=== PATIENT | male | born 1950 | race Hispanic/Latino ===

== ENCOUNTER 2019-04-28 05:38 | Day surgery (SDC) | payer MEDICARE ==
[~2019-04-28] VITALS: Ht 165.1 cm; Wt 75.3 kg
[2019-04-28] MEDS ORDERED: SODIUM CHLORIDE 0.9% 1000ML 1,000 ML IV ONE ×2 (05:47→06:29)
[2019-04-28 06:40] VITALS: BP 123/63
[2019-04-28] MEDS ORDERED: CLOP75TA14 PO (06:52)
[2019-04-28] MEDS ORDERED: ATOR20TA65 PO (06:52)
[2019-04-28] MEDS ORDERED: ASPI-1197 PO (06:52)
[2019-04-28] MEDS ORDERED: LIDOCAINE HCL 1% 20 ML VIAL ONE (07:24)
[2019-04-28] MEDS ORDERED: PROPOFOL 10 MG/ML 20ML VIAL IV ONE (07:24)
[2019-04-28 07:40] VITALS: BP 109/64
[2019-04-28 07:45] VITALS: BP 116/63
[2019-04-28 07:50] VITALS: BP 121/64
[2019-04-28 07:55] VITALS: BP 127/63
== END 2019-04-28 08:05 | disposition home or self-care (01) ==
LOC: ENDO 05:38 → DAH 05:38 → ENDO 08:05
PROVIDERS: ATTEND Internal Medicine Gastroenterology
DX: R10.13 Epigastric pain (principal); K29.70 Gastritis, unspecified, without bleeding; K31.89 Other diseases of stomach and duodenum; B96.81 Helicobacter pylori [H. pylori] as the cause of diseases classified elsewhere; I49.5 Sick sinus syndrome; E78.5 Hyperlipidemia, unspecified; E66.9 Obesity, unspecified; Z86.73 Personal history of transient ischemic attack (TIA), and cerebral infarction without residual deficits; Z86.010 Personal history of colon polyps; Z95.0 Presence of cardiac pacemaker; Z98.890 Other specified postprocedural states; Z79.82 Long term (current) use of aspirin; Z79.899 Other long term (current) drug therapy
CPT/HCPCS: 43239; A4215; A4221; A4222; A4223; A4606; A4620; A4663; J2704; J7030 ×2

== ENCOUNTER → 2022-10-22 | Outpatient (CLI) | payer MEDICARE ==
[~2022-10-22] MED LIST: ASPI-1197 PO; ATOR20TA65 PO; CLOP-31 PO
== END | disposition home or self-care (01) ==
LOC: RAH 10:00
PROVIDERS: ATTEND Otolaryngology Plastic Surgery within the Head & Neck
DX: H90.3 Sensorineural hearing loss, bilateral (principal)
CPT/HCPCS: 70480